=== PATIENT | female | born 1950 | race Caucasian/White ===

== ENCOUNTER → 2017-03-16 | Outpatient (CLI) | payer MEDICARE ==
[~2017-03-16] MED LIST: ACYCLOVIR800 MG PO; ATORVASTATIN CA80 MG PO; DIAZEPAM5 M1 PO; ETODOLAC400 MG PO; FLUOXETINE HYDR20 MG PO; GABAPENTIN300 M1 PO; GABAPENTIN300 MG PO; NATURE'S BLEN5000 IU PO; NEURONTIN 300M300 MG PO; OMEPRAZOLE20 MG PO; PERCOCET 5/3251 EACH PO; PROZAC40 M1 PO
[2017-03-16 11:44] LABS: LYMPH # 1.3 K/mm3 (0.7-4.5); LYMPH % 17.2 % (10-50.0)
[2017-03-16 12:23] LABS: BUN 12 mg/dL (7-18)
[2017-03-16 12:31] LABS: GFR (ESTIMATED) 55 ML/MIN (59-)
== END ==
LOC: LAB 10:59
PROVIDERS: Internal Medicine
DX: I73.9 Peripheral vascular disease, unspecified (principal); N18.2 Chronic kidney disease, stage 2 (mild); Q60.3 Renal hypoplasia, unilateral; E78.5 Hyperlipidemia, unspecified; F41.9 Anxiety disorder, unspecified; F33.1 Major depressive disorder, recurrent, moderate

== ENCOUNTER → 2017-06-30 | Outpatient (CLI) | payer MEDICARE ==
--- NOTE | 2017-06-30 14:01 | RADIOLOGY REPORT PS360 ---
US AORTA (RETROPERITONEAL) HISTORY: Aortic aneurysm with history of aortic bypass AAA ORDERING PHYSICIAN: Dante Blum MD PATIENT AGE: 67 years COMPARISON: 07/18/2016 CT scan FINDINGS: This study is technically limited due to patient's large abdominal scar from the bypass. There is poor acoustical window. At the level the umbilicus the aorta measures 4 x 4.3 cm. IMPRESSION: Very limited exam with 4 x 4.37 m abdominal aortic aneurysm. Consider CT angiography for more thorough evaluation
== END ==
LOC: RAD 08:37
DX: I71.4 Abdominal aortic aneurysm, without rupture (principal)

== ENCOUNTER 2017-08-23 07:59 | Day surgery (SDC) | payer MEDICARE ==
[~2017-08-23] VITALS: Ht 157.5 cm; Wt 65.8 kg
--- NOTE | 2017-08-23 10:13 | Operative Note ---
Endoscopy Report Date: 08/23/17 Preoperative diagnosis: Screening colonoscopy Procedure Type of procedure: Total colonoscopy with numerous polypectomy by snare and biopsy forceps Indications: Patient is a 67-year-old white female sent for initial screening colonoscopy. Consent was obtained the patient was taken to same-day surgery endoscopy procedure room. She was positioned in a lateral decubitus position. She was given an appreciable amount of Versed and fentanyl and was still completely lucid. Therefore anesthesia was called to administer propofol which was titrated to good sedation. Variable stiffness Olympus colonoscope was inserted via the anus. With significant difficulty the colonoscope was able to be ultimately advanced to the cecum with various positioning of the patient and abdominal pressure. She had an almost and conceivably floppy redundant colon. Colonic preparation was fair. Colonoscope was slowly withdrawn through the colon with careful surveillance. She had numerous small polyps encountered. Most of these were sessile and may be hyperplastic. She had a total of 11 polyps removed by variety of techniques including in the transverse, descending colon, sigmoid colon 3, distal sigmoid colon 4, and rectal polyp. Retroflexion was performed within the rectum which revealed nonpathologic internal hemorrhoids. Colonoscope was withdrawn. Findings 1. Polyp Follow-Up Follow-Up: Follow-up on the histopathology. Likely plan repeat colonoscopy in 3 years. However, if all of these are hyperplastic may extend screening interval to 5 years. Likely would benefit from fiber supplementation due to the significantly atonic floppy colon. at 1013
[2017-08-23 11:04] VITALS: BP 117/71
== END 2017-08-23 10:41 | disposition home or self-care (01) ==
LOC: SDC 07:59
PROVIDERS: Surgery
PROC: 0DBL8ZX Excision of Transverse Colon, Via Natural or Artificial Opening Endoscopic, Diagnostic (ICD-10-PCS; 2017-08-23)
PROC: 0DBP8ZX Excision of Rectum, Via Natural or Artificial Opening Endoscopic, Diagnostic (ICD-10-PCS; 2017-08-23)
PROC: 0DBN8ZX Excision of Sigmoid Colon, Via Natural or Artificial Opening Endoscopic, Diagnostic (ICD-10-PCS; 2017-08-23)
PROC: 0DBM8ZX Excision of Descending Colon, Via Natural or Artificial Opening Endoscopic, Diagnostic (ICD-10-PCS; principal; 2017-08-23 08:30)
DX: Z12.11 Encounter for screening for malignant neoplasm of colon (principal); K63.5 Polyp of colon; K62.1 Rectal polyp